=== PATIENT | male | born 2000 | race African-American/Black ===

== ENCOUNTER 2021-12-18 23:31 | Emergency (ER) | payer OTHER, MEDICAID | END 2021-12-18 23:55 | disposition home or self-care (01) | LOC: FB.ED 23:31 | DX: T14.8XXA Other injury of unspecified body region, initial encounter (principal); V49.49XA Driver injured in collision with other motor vehicles in traffic accident, initial encounter; Y92.410 Unspecified street and highway as the place of occurrence of the external cause | CPT/HCPCS: 99284 ==